=== PATIENT | male | born 1965 | race Caucasian/White ===

== ENCOUNTER 2017-08-02 07:52 | Emergency (ER) | payer OTHER ==
[2017-08-02 08:15] VITALS: BP 137/83
--- NOTE | 2017-08-02 08:30 | ED ---
GI/ HPI - HPI Summary HPI Summary: 51 yr old with amna anal pain for five, days, burning, itching, swelling of Hemorrhoid . The patient states he has had them before. he has been using preparation H but without results. He has no other complaints. Denies fever, chills. Symptoms are 6/10. - History of Current Complaint Chief Complaint: UCGeneralIllness Time Seen by Provider: 08/02/17 08:09 Stated Complaint: PERSONAL - Allergy/Home Medications Allergies/Adverse Reactions: Allergies Allergy/AdvReac Type Severity Reaction Status Date / Time Iohexol [From Omnipaque] Allergy Intermediate See Comment Verified 08/02/17 08: 05 Penicillins Allergy Intermediate rash? Verified 08/02/17 08:05 Home Medications: Home Medications Hemorrhoidal OINT* [Preparation H*] 1 applic ND Q12H PRN 08/02/17 [History Confirmed 08/02/17] PMH/Surg Hx/FS Hx/Imm Hx Endocrine/Hematology History: Reports: Hx Thyroid Disease - Hypo Denies: Hx Diabetes - borderline Cardiovascular History: Denies: Hx Hypertension, Hx Pacemaker/ICD Respiratory History: Denies: Hx Asthma History: Denies: Hx Renal Disease Sensory History: Denies: Hx Hearing Aid Psychiatric History: Denies: Hx Panic Disorder - Surgical History Surgery Procedure, Year, and Place: lower back discectomy, right rotator cuff anterior & posterior surgery Infectious Disease History: Yes Infectious Disease History: Reports: Hx Shingles Denies: Traveled Outside the [place] in Last 30 Days - Family History Known Family History: Positive: Hypertension, Diabetes, Other - [place] - Social History Alcohol Use: None Substance Use Type: Reports: None Smoking Status (MU): Never Smoked Tobacco Review of Systems Constitutional: Negative Positive: Other - hemorrhoid Positive: other - hemerrhoid All Other Systems Reviewed And Are Negative: Yes Physical Exam Triage Information Reviewed: Yes Vital Signs On Initial Exam: Initial Vitals Temp Pulse Resp BP Pulse Ox 98.4 F 56 16 137/83 98 08/02/17 08:00 08/02/17 08:00 08/02/17 08:00 08/02/17 08:00 08/02/17 08:00 Vital Signs Reviewed: Yes Appearance: Positive: Well-Appearing, No Pain Distress Skin: Positive: Warm Head/Face: Positive: Normal Head/Face Inspection Eyes: Positive: EOMI ENT: Positive: Normal ENT inspection Neck: Positive: Nontender Respiratory/Lung Sounds: Positive: Clear to Auscultation, Breath Sounds Present Cardiovascular: Positive: RRR. Negative: Murmur Abdomen Description: Positive: Nontender, Other: - he has a thrombosed hemerrhoid external. No cellulitis, no abscess. No bleeding. Neurological: Positive: Alert, Oriented to Person Place, Time, CN Intact II-III Psychiatric: Positive: Normal Diagnostics - Vital Signs Vital Signs Temp Pulse Resp BP Pulse Ox 08/02/17 08:00 98.4 F 56 16 137/83 98 - Laboratory Lab Statement: Any lab studies that have been ordered have been reviewed, and results considered in the medical decision making process. GIGU Course/Dx - Course Course Of Treatment: 51 yr old with hemerrhoid. Anusol HC cream prescribed. - Diagnoses Provider Diagnoses: External hemorrhoid, Hypertension Discharge - Discharge Plan Condition: Good Disposition: HOME Prescriptions: Hydrocortisone 2.5% CREAM(NF) 1 applic TOPICAL BID #1 tube Patient Education Materials: Hemorrhoids (ED), Hypertension (ED) Referrals: LISSETT Faulkner [Primary Care Provider] -
== END 2017-08-02 08:28 | disposition home or self-care (01) ==
LOC: UCCORT 07:52
DX: K64.4 Residual hemorrhoidal skin tags (principal); I10 Essential (primary) hypertension; E03.9 Hypothyroidism, unspecified; Z88.0 Allergy status to penicillin; Z91.041 Radiographic dye allergy status
CPT/HCPCS: 99212; G0463

== ENCOUNTER 2019-10-08 15:07 | Emergency (ER) | payer BC ==
[2019-10-08 15:37] VITALS: BP 170/93
--- NOTE | 2019-10-08 17:13 | UC ---
Shortness of Breath HPI - HPI Summary HPI Summary: 53 yo with one week hx of cough. For the past 3 days he has had paroxysms of cough associated with exertion (carrying firewood into the house) Occasional blood tingued phelgm - History of Current Complaint Chief Complaint: UCGeneralIllness Stated Complaint: SOB,COUGH ON EXCERTION Time Seen by Provider: 10/08/19 16:36 Hx Obtained From: Patient Onset/Duration: Sudden Onset Timing: Intermittent Episodes Lasting: - minutes Current Severity: None Dyspnea At: Exertion Alleviating Factors: Nothing Associated Signs & Symptoms: Positive: Cough (Bloody Sputum), Wheezing - ?. Negative: Chest Pain w/Cough, Chest Pain Unrelated to Cough, Fever, Chills, Diaphoresis, Nasal Congestion, Dizzy, Calf Pain/Swelling, Edema - Allergy/Home Medications Allergies/Adverse Reactions: Allergies Allergy/AdvReac Type Severity Reaction Status Date / Time iohexol [From Omnipaque] Allergy See Comment Verified 10/08/19 15:38 Penicillins Allergy Rash Verified 10/08/19 15:38 Home Medications: Home Medications Naproxen Sodium [Aleve] 440 mg PO Q6H 11/11/17 [History Confirmed 10/08/19] Albuterol 2.5MG/3ML (0.083%)* [Ventolin 2.5 MG/3 ML NEB.DAPHNEY*] 2.5 mg INH QID PRN #1 neb.daphney 10/08/19 [Rx] Azithromycin TAB* [Zithromax TAB*] 250 mg PO DAILY #6 tab 10/08/19 [Rx] Budesonide NEB* [Pulmicort NEB*] 0.5 mg INH BID #1 neb.soln 10/08/19 [Rx] Divalproex ER TAB(*) [Depakote ER TAB(*)] 250 mg PO BID 10/08/19 [History Confirmed 10/08/19] Meloxicam 7.5 mg PO DAILY 10/08/19 [History Confirmed 10/08/19] Omeprazole 40 mg PO DAILY 10/08/19 [History Confirmed 10/08/19] Sertraline* [Zoloft*] 50 mg PO DAILY 10/08/19 [History Confirmed 10/08/19] PMH/Surg Hx/FS Hx/Imm Hx Previously Healthy: Yes - Surgical History Surgical History: Yes Surgery Procedure, Year, and Place: lower back discectomy, right rotator cuff anterior & posterior surgery - Family History Known Family History: Positive: Hypertension, Diabetes, Other - [place] - Social History Alcohol Use: None Substance Use Type: None Smoking Status (MU): Never Smoked Tobacco Household Exposure Type: Cigarettes Review of Systems All Other Systems Reviewed And Are Negative: Yes Constitutional: Positive: Negative Skin: Positive: Negative Eyes: Positive: Negative ENT: Positive: Negative Respiratory: Positive: Shortness Of Breath, Cough Cardiovascular: Positive: Negative Gastrointestinal: Positive: Negative Genitourinary: Positive: Negative Motor: Positive: Negative Neurovascular: Positive: Negative Musculoskeletal: Positive: Negative Neurological/Mental Status: Positive: Negative Psychological: Positive: Negative Physical Exam Triage Information Reviewed: Yes Appearance: Well-Appearing, No Pain Distress, Well-Nourished Vital Signs: Initial Vital Signs Temp 98.0 F 10/08/19 15:26 Pulse 66 10/08/19 15:26 Resp 18 10/08/19 15:26 BP 170/93 10/08/19 15:26 Pulse Ox 98 10/08/19 15:26 Vital Signs Reviewed: Yes Eyes: Positive: Conjunctiva Clear ENT: Positive: Hearing grossly normal, TMs normal, Uvula midline. Negative: Nasal congestion, Nasal drainage, Trismus, Muffled voice, Hoarse voice Neck: Positive: Supple, Nontender, No Lymphadenopathy Respiratory Exam: Normal Respiratory: Positive: No respiratory distress, Rhonchi, Wheezing - with forced expiration Cardiovascular: Positive: RRR, No Murmur Bowel Sounds: Positive: Present Musculoskeletal: Positive: ROM Intact, No Edema Neurological: Positive: Alert Psychological Exam: Normal Skin Exam: Normal Diagnostics - Radiology No standard instances Radiology Interpretation Completed By: Radiologist Summary of Radiographic Findings: #. Elevated lung volumes suggest potential obstructive lung disease. No acute pulmonary or cardiac process evident - EKG Cardiac Rate: Bradycardia Cardiac Rhythm: Sinus: Normal Ectopy: None ST Segment: Normal Shortness of Breath Dx - Differential Dx/Diagnosis Provider Diagnosis: Bronchitis Discharge ED - Sign-Out/Discharge Documenting (check all that apply): Patient Departure All imaging exams completed and their final reports reviewed: Yes - Discharge Plan Condition: Stable Disposition: HOME Prescriptions: Albuterol 2.5MG/3ML (0.083%)* [Ventolin 2.5 MG/3 ML NEB.DAPHNEY*] 2.5 mg INH QID PRN #1 neb.daphney PRN Reason: Wheezing Azithromycin TAB* [Zithromax TAB*] 250 mg PO DAILY #6 tab Budesonide NEB* [Pulmicort NEB*] 0.5 mg INH BID #1 neb.soln Patient Education Materials: Acute Bronchitis (ED) Referrals: Dipak Austin MD [Primary Care Provider] - 3 Days () Additional Instructions: we will treat you for possible bronchitis to ER for worsening symptoms see your MD on Friday for recheck - Billing Disposition and Condition Condition: STABLE Disposition: Home
== END 2019-10-08 18:01 | disposition home or self-care (01) ==
LOC: UCCORT 15:07
DX: J40 Bronchitis, not specified as acute or chronic (principal); Z91.040 Latex allergy status; Z88.0 Allergy status to penicillin
CPT/HCPCS: 71046; 93005; 99212; G0463